=== PATIENT | female | born 1985 | race Caucasian/White ===

== ENCOUNTER 2019-08-13 22:44 | Emergency (ER) | payer SELFPAY ==
--- NOTE | 2019-08-13 23:15 | NUR ---
ED Nurse Note: called patient, not in the waiting room
--- NOTE | 2019-08-13 23:24 | NUR ---
ED Nurse Note: called patient second time, not in the waiting room
--- NOTE | 2019-08-14 02:48 | Emergency Room Report ---
History of Present Illness General Chief Complaint: To Be Triaged Present Illness HPI Patient checked in but was not found in waiting room when called for triage. I had no interactions with this patient. Medical Decision Making Diagnostic Impression: Primary Impression: LWBS ER Course Patient checked in but was not found in waiting room when called for triage. I had no interactions with this patient. Disposition: LEFT W/OUT BEING SEEN Condition: Stable Referrals: NOT CHOSEN IPA/,REFERRING (PCP) Slick Bryant MD Aug 14, 2019 02:48
== END 2019-08-13 23:30 | disposition left against medical advice (07) ==
LOC: EMR 23:30
DX: J45.909 Unspecified asthma, uncomplicated (principal); Z53.21 Procedure and treatment not carried out due to patient leaving prior to being seen by health care provider